=== PATIENT | male | born 1950 | race Caucasian/White ===

== ENCOUNTER 2016-12-30 06:16 | Day surgery (SDC) | payer OTHER ==
[~2016-12-30] VITALS: Ht 162.6 cm; Wt 50.8 kg
[2016-12-30] MEDS ORDERED: SODIUM CHLOR 0.9% 1000 ML INJ 1,000 ML IV SCH (06:45)
[2016-12-30] MEDS ORDERED: DO NOT GIVE AM GLUCOPHAGE, GLUCOPHAGE XR, GLIPIZIDE, GLYBURIDE OR AVANDAMET PRN (06:45)
[2016-12-30] MEDS ORDERED: SODIUM CHLORIDE 0.9% FLUSH 10 ML FLUSH IV FLUSH PRN ×2 (06:45)
[2016-12-30] MEDS ORDERED: LISI40TA PO (06:51)
[2016-12-30] MEDS ORDERED: ASPI325T PO (06:51)
[2016-12-30] MEDS ORDERED: ATEN50TA PO (06:51)
[2016-12-30 07:01] VITALS: BP 172/81; PULSE 48; RESP 18; TEMP 98.3; O2SAT 98
[2016-12-30] MEDS ORDERED: HEPARIN SODIUM - IV 10,000 UNITS/10 ML VIAL ONE (07:35)
[2016-12-30] MEDS ORDERED: MIDAZOLAM HCL 5 MG/ML VIAL (1 ML) ONE ×2 (08:51→10:10)
[2016-12-30] MEDS ORDERED: PROTAMINE SULFATE 50 MG/5 ML VIAL ONE (10:55)
[2016-12-30] MEDS ORDERED: ATOR40TA16 PO (11:05)
[2016-12-30] MEDS ORDERED: PLAV75TA29 PO (11:06)
[2016-12-30] MEDS ORDERED: BACITRACIN OINT 0.9 GM PKT TOP ONE (11:15)
[2016-12-30] MEDS ORDERED: METOCLOPRAMIDE HCL 10 MG/2 ML VIAL IV PRN (11:15)
[2016-12-30] MEDS ORDERED: SODIUM CHLOR 0.9% 250 ML INJ 250 ML IV PRN (11:15)
[2016-12-30] MEDS ORDERED: oxyCODONE/ACETAMINOPHEN 5 MG/325 MG TAB PO PRN (11:15)
[2016-12-30] MEDS ORDERED: oxyCODONE/ACETAMINOPHEN 10 MG/325 MG TAB PO PRN (11:15)
[2016-12-30] MEDS ORDERED: ONDANSETRON HCL 4 MG/2 ML VIAL IV PRN (11:15)
[2016-12-30] MEDS ORDERED: LORazepam 2 MG/ML VIAL IV PRN (11:15)
[2016-12-30] MEDS ORDERED: LIDOCAINE HCL 1% 50 ML VIAL INFIL PRN (11:15)
[2016-12-30] MEDS ORDERED: ATROPINE SULFATE 1 MG/ML VIAL IV PRN (11:15)
[2016-12-30] MEDS ORDERED: ACETAMINOPHEN 325 MG TAB PO PRN (11:15)
[2016-12-30] MEDS ORDERED: MORPHINE SULFATE 4 MG/ML INJ IV PUSH PRN (11:15)
[2016-12-30] MEDS ORDERED: MISC INFORMATION XX ONE (11:15)
[2016-12-30] MEDS ORDERED: hydrALAZINE HCL 20 MG/ML VIAL ONE (11:16)
[2016-12-30] MEDS ORDERED: CLOPIDOGREL 300 MG TAB PO ONE (12:15)
--- NOTE | 2016-12-30 12:36 | MA ---
cc: MAHI BRADLEY DATE 12/30/2016 Peripheral angiography with intervention. PROCEDURE PERFORMED 1. Fluoroscopy with interpretation 2. Descending aortography 3. Right lower extremity peripheral angiography with first, second, third order visualization interpretation. 4. Percutaneous transluminal angioplasty of the right popliteal artery. 5. Percutaneous endovascular stenting of the right superficial femoral artery with self-expanding stent. METHOD The risks, benefits and alternatives discussed with the patient. The patient understood and consented to the procedure. PROCEDURE The patient brought in to the catheterization lab, placed on the catheterization table. The left groin was prepped and draped in a sterile fashion. The left groin was anesthetized with 2% lidocaine. The left common femoral was cannulated and a 5-Wallisian 11 center sheath was placed without difficulty. DESCENDING AORTOGRAPHY Descending aortography was performed anterior-posterior view using a 24 cc contrast injection with good opacification. Descending aortography revealed mild infrarenal descending aortic atherosclerosis, bilateral renal artery is widely patent. RIGHT LOWER EXTREMITY PERIPHERAL ANGIOGRAPHY Right common internal and external iliac arteries are widely patent. The right common femoral has mild luminal irregularities. The right profunda artery is widely patent. The right superficial femoral is occluded in the distal segment. The entire length of the popliteal artery is occluded, but recanalizes via collateralization at the level of the bifurcation anterior, tibial and posterior tibial peroneal trunk. The anterior tibial, posterior tibial peroneal vessels are not well visualized, but appear to be patent with moderate diffuse distal disease. PERCUTANEOUS INTERVENTION Heparin was administered throughout the entire procedure to maintain appropriate anticoagulation. An Omniflush catheter was engaged in the right common iliac artery. A 0.035 inches 260 cm stiff angle glide was navigated down the right superficial femoral and without difficulty. A 6-Wallisian 45 cm Proxible destination pinnacle sheath was advanced up-and-over the arch. A 0.035 inch 135 cm trailblazer catheter was advanced behind the Glidewire. Unfortuantely, we were unable to navigate the Glidewire through the occlusion back into a [place] vessel. A 0.014 inches 25 gram tip [employer] wire was then advanced down to the level of the occlusion and with a great deal of time and effort, we were finally able to cross through the occlusion. [place]-ST was navigated down the posterior tibial vessel 4.0 x 100 mm Rystotronic balloon was then dilated through the popliteal superficial femoral artery. Repeat angiography showed severe residual stenosis. A 5.0 x 150 mm Medtronic drug coated balloon was deployed in the popliteal 6.0 x 120 mm Medtronic drug coated balloon was deployed in the right in the right superficial femoral artery. Repeat angiography shows severe residual stenosis in the distal superficial femoral artery at the level of the transition to the popliteal. A 6.00 x 120 mm Medtronic self-expanding stent was then deployed into the right superficial femoral artery distally and postdilated to 12 atmospheres. Repeat angiography showed OLMAN-III flow and no significant residual stenosis. The guide sheath was removed. The sheath was pulled with manual hemostasis. CONCLUSIONS 1. 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 2. Successful endovascular stenting of the right superficial femoral artery with self-expanding stent. 3. Successful balloon angioplasty with a drug coated balloon of the right popliteal artery. 4. Mild infrarenal descending aortic atherosclerosis. PLAN Hopefully this will translate well with symptomatic improvement. The patient be continued on Plavix therapy and with monitored closely for any post procedural complications. Anticipate discharge later today. MD CHERELLE Browning/DONA /11:02 AM /12:26 PM
[2016-12-30] MEDS ORDERED: IOHEXOL 350 MG/ML 100 ML BTL (for Cath Lab) OTHER ONE (12:46)
[2016-12-31] MEDS ORDERED: ASPIRIN 81 MG CHEW TAB PO SCH (09:00)
[2016-12-31] MEDS ORDERED: CLOPIDOGREL 75 MG TAB PO SCH (09:00)
== END 2016-12-30 18:11 | disposition home or self-care (01) ==
LOC: HDIC 06:16 → EDSEX 06:16 → HCVO 06:16
PROVIDERS: ATTEND Internal Medicine
DX: I77.1 Stricture of artery (principal); I70.0 Atherosclerosis of aorta; I10 Essential (primary) hypertension
CPT/HCPCS: 37226; 75625; 85002; 86850; 86900; 86901; C1725; C1769; C1876; C1887; C1893; C2623; J0360; J1644; J2250; J2720; J3010; Q9967